=== PATIENT | female | born 1970 | race Caucasian/White ===

== ENCOUNTER 2017-07-31 19:55 | Inpatient (IN) | payer BC ==
[~2017-07-31] VITALS: Ht 167.6 cm; Wt 72.6 kg
[2017-07-31 20:01] VITALS: BP_SYST 138
[2017-07-31 21:01] LABS: CALCIUM 9.3 mg/dL (8.4-11.0); CREATININE 0.8 mg/dL (0.55-1.30); POTASSIUM 3.9 mmol/L (3.5-5.1)
[2017-07-31 21:02] LABS: INR 1.9 (0.8-1.2)
[2017-07-31 21:06] LABS: ALBUMIN 4.3 g/dL (3.4-4.8); TOTAL BILIRUBIN 0.5 mg/dL (0.0-1.0)
[2017-07-31 21:16] LABS: BASOPHILS % (AUTO) 0.8 % (0.0-2.0); EOSINOPHILS # (AUTO) 0.1 K/uL (0.0-0.4); EOSINOPHILS % (AUTO) 1.6 % (0.0-4.0); HEMOGLOBIN 13.9 g/dL (12.0-16.0); LYMPHOCYTES % (AUTO) 36.4 % (20.5-51.5); MEAN CORPUSCULAR HEMOGLOBIN 30 pg (27-31); MEAN CORPUSCULAR HGB CONC 34 % (32-36); MEAN CORPUSCULAR VOLUME 90 fL (79.0-98.0); MONOCYTES # (AUTO) 0.4 K/uL (0.0-1.0); MONOCYTES % (AUTO) 6.5 % (1.7-9.3); NEUTROPHILS % (AUTO) 54.7 % (40.0-70.0); PLATELET COUNT (AUTO) 255 K/uL (130-430); RED BLOOD CELL COUNT(AUTO) 4.59 MIL/uL (4.2-6.2); RED CELL DISTRIBUTION WIDTH 12.3 % (9.0-15.0); WHITE BLOOD COUNT (AUTO) 5.5 K/uL (4.8-10.8)
[2017-07-31 22:05] LABS: BILIRUBIN,URINE NEGATIVE (NEGATIVE); BLOOD, URINE NEGATIVE (NEGATIVE); CLARITY/URINE CLEAR (CLEAR); COLOR,URINE YELLOW (YELLOW); GLUCOSE,URINE NEGATIVE (NEGATIVE); KETONES,URINE NEGATIVE (NEGATIVE); LEUKOCYTE ESTERASE ,URINE NEGATIVE (NEGATIVE); NITRITE, URINE NEGATIVE (NEGATIVE); PH,URINE 5.5 (5.0-8.0); PROTEIN URINE NEGATIVE (NEGATIVE); UROBILINOGEN,URINE 0.2 (0.2-1.0)
[2017-07-31] MEDS ORDERED: ACYC400T PO (22:40)
[2017-07-31] MEDS ORDERED: VITD2000 PO (22:40)
[2017-07-31] MEDS ORDERED: WARF1TAB2 PO (22:40)
[2017-08-01] MEDS ORDERED: *HEPARIN PER PHARMACY XX PRN (00:15)
[2017-08-01] MEDS ORDERED: PIPERACILLIN/TAZO 3.375 GM in NS 50 ML IV SCH (00:15)
[2017-08-01 01:04] VITALS: BP_SYST 117
[2017-08-01] MEDS: ACETAMINOPHEN 650 MG/20.3 ML UDC GT PRN ×2 (01:40→19:55)
[2017-08-01] MEDS ORDERED: PIPERACILLIN/TAZOBACTAM 3.375 GM/VIAL (ZOSYN) IV ONE (02:39)
[2017-08-01] MEDS ORDERED: HEPARIN SODIUM,PORCINE 5000 UNITS/ML VIAL IV ONE (03:00)
[2017-08-01] MEDS ORDERED: HEPARIN SODIUM,PORCINE 2000 UNITS/0.4 ML BOLUS IVP PRN (03:00)
[2017-08-01] MEDS ORDERED: HEPARIN 25,000 UNITS in 250 ML PREMIX IV PRN (03:00)
[2017-08-01] MEDS ORDERED: HEPARIN SODIUM,PORCINE 3000 UNITS/0.6 ML BOLUS IVP PRN (03:00)
[2017-08-01 06:58] LABS: BASOPHILS % (AUTO) 0.4 % (0.0-2.0); EOSINOPHILS # (AUTO) 0.1 K/uL (0.0-0.4); EOSINOPHILS % (AUTO) 1.6 % (0.0-4.0); HEMATOCRIT 34.9 % (36-48); HEMOGLOBIN 11.9 g/dL (12.0-16.0); LYMPHOCYTES # (AUTO) 1.7 K/uL (1.0-5.5); LYMPHOCYTES % (AUTO) 38.6 % (20.5-51.5); MEAN CORPUSCULAR HEMOGLOBIN 31 pg (27-31); MEAN CORPUSCULAR HGB CONC 34 % (32-36); MEAN CORPUSCULAR VOLUME 90 fL (79.0-98.0); MONOCYTES # (AUTO) 0.4 K/uL (0.0-1.0); MONOCYTES % (AUTO) 9.2 % (1.7-9.3); NEUTROPHILS # (AUTO) 2.3 K/uL (1.8-7.7); NEUTROPHILS % (AUTO) 50.2 % (40.0-70.0); PLATELET COUNT (AUTO) 181 K/uL (130-430); RED CELL DISTRIBUTION WIDTH 12.5 % (9.0-15.0); WHITE BLOOD COUNT (AUTO) 4.5 K/uL (4.8-10.8)
[2017-08-01 07:09] VITALS: BP_SYST 121
[2017-08-01 07:11] LABS: ALBUMIN 3.3 g/dL (3.4-4.8); CALCIUM 8.3 mg/dL (8.4-11.0); CREATININE 0.82 mg/dL (0.55-1.30); POTASSIUM 3.9 mmol/L (3.5-5.1); TOTAL BILIRUBIN 0.5 mg/dL (0.0-1.0)
[2017-08-01 08:00] VITALS: BP_SYST 104
[2017-08-01] MEDS: CHOLECALCIFEROL (VITAMIN D3) 2,000 UNIT TABLET PO SCH (09:15)
[2017-08-01] MEDS ORDERED: ENOXAPARIN SODIUM 80 MG/0.8 ML SYRINGE SUBCUT ONE (10:45)
[2017-08-01] MEDS ORDERED: *LOVENOX 1MG/KG Q12H/PHARMACY XX SCH (10:45)
[2017-08-01 12:00] VITALS: BP_SYST 110
[2017-08-01] MEDS: VANCOMYCIN HCL 1,000 MG in NS 250 ML IV SCH (12:35)
[2017-08-01] MEDS: ceFAZolin SODIUM 1 GM in D5W 50 ML IV SCH ×2 (14:40→21:29)
[2017-08-01 16:20] VITALS: BP_SYST 113
[2017-08-01] MEDS: WARFARIN SODIUM 7.5 MG TABLET PO SCH (17:03)
[2017-08-01 20:00] VITALS: BP_SYST 124
[2017-08-01] MEDS: ENOXAPARIN SODIUM 80 MG/0.8 ML SYRINGE SUBCUT SCH (21:36)
[2017-08-02 00:30] VITALS: BP_SYST 94
[2017-08-02] MEDS: VANCOMYCIN HCL 1,000 MG in NS 250 ML IV SCH ×2 (00:44→11:30)
[2017-08-02 04:00] VITALS: BP_SYST 108
[2017-08-02] MEDS: ceFAZolin SODIUM 1 GM in D5W 50 ML IV SCH ×3 (06:19→21:00)
[2017-08-02 07:11] LABS: PROTHROMBIN TIME 20.5 SECS (9.5-12.5)
[2017-08-02 07:57] VITALS: BP_SYST 107
[2017-08-02] MEDS: CHOLECALCIFEROL (VITAMIN D3) 2,000 UNIT TABLET PO SCH (08:39)
[2017-08-02] MEDS: ENOXAPARIN SODIUM 80 MG/0.8 ML SYRINGE SUBCUT SCH ×2 (08:39→21:01)
[2017-08-02 12:05] VITALS: BP_SYST 115
[2017-08-02] MEDS ORDERED: NITROGLYCERIN 0.4 MG TAB.SUBL SL PRN (12:30)
[2017-08-02 16:02] VITALS: BP_SYST 111
[2017-08-02] MEDS: WARFARIN SODIUM 7.5 MG TABLET PO SCH (17:49)
[2017-08-02 20:00] VITALS: BP_SYST 129
[2017-08-02] MEDS: ACETAMINOPHEN 650 MG/20.3 ML UDC GT PRN (23:53)
[2017-08-03] VITALS (8 sets, daily range): BP systolic 90–116
[2017-08-03 04:48] LABS: INR 1.7 (0.8-1.2); PROTHROMBIN TIME 17.2 SECS (9.5-12.5)
[2017-08-03] MEDS: ceFAZolin SODIUM 1 GM in D5W 50 ML IV SCH ×2 (05:15→14:03)
[2017-08-03] MEDS: ENOXAPARIN SODIUM 80 MG/0.8 ML SYRINGE SUBCUT SCH ×2 (09:31→21:24)
[2017-08-03] MEDS: CHOLECALCIFEROL (VITAMIN D3) 2,000 UNIT TABLET PO SCH (09:33)
[2017-08-03] MEDS ORDERED: WARFARIN SODIUM 5 MG TABLET PO SCH (18:00)
[2017-08-03] MEDS: CEFEPIME 1 GM in D5W 50 ML IV SCH (21:28)
[2017-08-04] VITALS: BP_SYST 110
[2017-08-04] MEDS: ACETAMINOPHEN 650 MG/20.3 ML UDC GT PRN (01:00)
[2017-08-04 04:00] VITALS: BP_SYST 101
[2017-08-04 04:15] VITALS: BP_SYST 93
[2017-08-04 07:40] LABS: INR 1.5 (0.8-1.2)
[2017-08-04 08:39] VITALS: BP_SYST 109
[2017-08-04] MEDS: CHOLECALCIFEROL (VITAMIN D3) 2,000 UNIT TABLET PO SCH (08:52)
[2017-08-04] MEDS: ENOXAPARIN SODIUM 80 MG/0.8 ML SYRINGE SUBCUT SCH (08:52)
[2017-08-04] MEDS: CEFEPIME 1 GM in D5W 50 ML IV SCH (10:52)
[2017-08-04 12:20] VITALS: BP_SYST 106
[2017-08-04 12:50] VITALS: BP_SYST 106
== END 2017-08-04 13:30 | disposition home or self-care (01) | DRG 300 ==
LOC: SED 19:55 → STU 08-01
PROVIDERS: ADMIT Internal Medicine Hospice and Palliative Medicine; ATTEND Internal Medicine Hospice and Palliative Medicine
DX: I82.412 Acute embolism and thrombosis of left femoral vein (principal); L03.116 Cellulitis of left lower limb; D68.61 Antiphospholipid syndrome; Z79.01 Long term (current) use of anticoagulants; Z86.711 Personal history of pulmonary embolism; R07.89 Other chest pain; Z88.2 Allergy status to sulfonamides; B96.5 Pseudomonas (aeruginosa) (mallei) (pseudomallei) as the cause of diseases classified elsewhere
CPT/HCPCS: 36415; 80053; 81003; 81025; 83605; 84484; 85025; 85610-TC; 85730-TC; 87040-TC; 87070-TC; 87081; 87186-TC; 93005; 93922; 93971; 99285; J0690; J0692; J1644; J1650; J2543; J3370; J7050; J7060

== ENCOUNTER 2018-07-16 16:50 | Inpatient (IN) | payer BC ==
[~2018-07-16] VITALS: Ht 167.6 cm; Wt 72.6 kg
[~2018-07-16 16:50] MED LIST: ACYC400T PO; VITD2000 PO; WARF1TAB2 PO
[2018-07-16 17:22] VITALS: BP_SYST 120
[2018-07-16 17:44] LABS: BASOPHILS % (AUTO) 0.9 % (0.0-2.0); EOSINOPHILS # (AUTO) 0.1 K/uL (0.0-0.4); EOSINOPHILS % (AUTO) 1.4 % (0.0-4.0); HEMATOCRIT 38.1 % (36-48); HEMOGLOBIN 12.7 g/dL (12.0-16.0); LYMPHOCYTES # (AUTO) 1.6 K/uL (1.0-5.5); MEAN CORPUSCULAR HEMOGLOBIN 30 pg (27-31); MEAN CORPUSCULAR HGB CONC 33 % (32-36); MEAN CORPUSCULAR VOLUME 90 fL (79.0-98.0); MONOCYTES # (AUTO) 0.3 K/uL (0.0-1.0); NEUTROPHILS # (AUTO) 2.5 K/uL (1.8-7.7); NEUTROPHILS % (AUTO) 55.7 % (40.0-70.0); PLATELET COUNT (AUTO) 196 K/uL (130-430); RED BLOOD CELL COUNT(AUTO) 4.22 MIL/uL (4.2-6.2); RED CELL DISTRIBUTION WIDTH 12.7 % (9.0-15.0); WHITE BLOOD COUNT (AUTO) 4.5 K/uL (4.8-10.8)
[2018-07-16 17:55] LABS: CALCIUM 9.3 mg/dL (8.4-11.0); CREATININE 0.86 mg/dL (0.55-1.30); POTASSIUM 3.5 mmol/L (3.5-5.1)
[2018-07-16 17:56] LABS: INR 1.4 (0.8-1.2); PROTHROMBIN TIME 14.8 SECS (9.5-12.5)
[2018-07-16 18:00] LABS: ALBUMIN 3.8 g/dL (3.4-4.8); TOTAL BILIRUBIN 0.5 mg/dL (0.0-1.0)
[2018-07-16] MEDS ORDERED: ENOXAPARIN SODIUM 80 MG/0.8 ML SYRINGE SUBCUT ONE (19:45)
[2018-07-16 20:16] VITALS: BP_SYST 126
[2018-07-16 20:30] VITALS: BP_SYST 126
[2018-07-16] MEDS ORDERED: WARFARIN SODIUM 5 MG TABLET PO SCH (21:00)
[2018-07-16] MEDS ORDERED: *LOVENOX 1MG/KG Q12H/PHARMACY XX ONE (21:00)
[2018-07-17 00:40] VITALS: BP_SYST 102
[2018-07-17 08:00] VITALS: BP_SYST 102
[2018-07-17] MEDS ORDERED: ENOXAPARIN SODIUM 80 MG/0.8 ML SYRINGE SUBCUT SCH ×2 (09:00→21:00)
[2018-07-17 12:00] VITALS: BP_SYST 117
[2018-07-17] MEDS ORDERED: LOVI80 SQ (15:45)
[2018-07-17 15:53] VITALS: BP_SYST 111
[2018-07-17 16:00] VITALS: BP_SYST 111
== END 2018-07-17 16:05 | disposition home or self-care (01) | DRG 303 ==
LOC: SED 16:50 → SMU 19:26
PROVIDERS: ADMIT Internal Medicine Hospice and Palliative Medicine; ATTEND Internal Medicine Hospice and Palliative Medicine
DX: I87.8 Other specified disorders of veins (principal); D68.61 Antiphospholipid syndrome; I82.509 Chronic embolism and thrombosis of unspecified deep veins of unspecified lower extremity; Z79.01 Long term (current) use of anticoagulants; Z88.2 Allergy status to sulfonamides; Z86.711 Personal history of pulmonary embolism
CPT/HCPCS: 36415; 80053; 85025; 85379; 85610-TC; 93971; 96372; 99285; J1650